=== PATIENT | male | born 1940 | race Caucasian/White ===

== ENCOUNTER 2017-09-09 12:07 | Inpatient (IN) ==
[2017-09-09] MEDS ORDERED: Benzonatate 100 MG CAPSULE PO PRN (21:27)
[2017-09-10] MEDS: Metoprolol XL (24 HR) Succ 50 MG TAB.ER.24H PO SCH ×3 (00:10→21:35)
[2017-09-10] MEDS: cloNIDine HCl 0.1 MG TABLET PO SCH ×4 (00:10→21:35)
[2017-09-10] MEDS: *HR* OxyCODONE/APAP 5/325 TABLET PO PRN (00:10)
[2017-09-10 05:45] LABS: Basophils # 0.1 K/mcL (0.0-0.2); Basophils % 1.3 %; Eosinophils # 0.2 K/mcL (0.0-0.6); Eosinophils % 3.9 %; Hematocrit 35.5 % (37.5-50.1); Hemoglobin 11.7 g/dL (12.9-16.9); Immature Granulocytes % 0.8 % (0-4); Lymphocytes # 1.6 K/mcL (0.6-4.6); Lymphocytes % 25.2 %; Mean Corpuscular Hemoglobin 32.1 pg (28.0-33.3); Mean Corpuscular Volume 97.3 fL (83.0-100.0); Mean Platelet Volume 9.6 fL (9.4-12.4); Monocytes # 0.6 K/mcL (0.0-1.3); Monocytes % 8.9 %; Neutrophils # 3.7 K/mcL (1.6-8.9); Platelet Count 207 K/mcL (140-400); Red Blood Count 3.65 M/mcL (4.19-5.50); Red Cell Distribution Width 13.2 % (11.5-14.5); Segmented Neutrophils % 59.9 %
[2017-09-10 05:50] LABS: INR 1.2; Prothrombin Time 12.6 Seconds (9.4-12.1)
[2017-09-10 05:51] LABS: Activated Partial Thrombo Time 29.3 Seconds (26.0-36.0)
[2017-09-10 06:00] LABS: BUN/Creatinine Ratio 22 (6-26); Blood Urea Nitrogen 28 mg/dL (8-23); Calcium 9.1 mg/dL (8.6-10.3); Carbon Dioxide 36 mEq/L (23-29); Chloride 98 mEq/L (98-107); Glucose 131 mg/dL (70-105); Osmolality,Calculated 301 (280-300); Potassium 4.2 mEq/L (3.5-5.1); Sodium 142 mEq/L (136-145); eGFR For African Americans > 60 (> 60); eGFR For Non-African Americans 54 (> 60)
[2017-09-10] MEDS: *HR* Heparin 5,000 UNIT/ML VIAL SQ SCH ×2 (06:49→17:51)
[2017-09-10] MEDS ORDERED: Ipratropium/Albuterol Neb 3 ML IH PRN (08:20)
[2017-09-10] MEDS: Acetaminophen 325 MG TABLET PO PRN ×3 (09:01→17:45)
[2017-09-10] MEDS: *HR* Nateglinide 120 MG TABLET PO SCH ×3 (09:03→17:45)
[2017-09-10] MEDS: Furosemide 40 MG TABLET PO SCH ×2 (09:03→17:45)
[2017-09-10] MEDS: amLODIPine 5 MG TABLET PO SCH (09:03)
[2017-09-10] MEDS: Aspirin Enteric Coated 81 MG Tablet PO SCH (09:03)
[2017-09-10] MEDS: Clotrimazole/Betameth Dip CRM 45 APPL/45 GM TUBE TP SCH ×2 (09:04→21:36)
--- NOTE | 2017-09-10 17:45 | Internal Med History&Physical ---
Date of Encounter: 09/10/17 Time of Encounter: 17:45 Assessment and Plan (1) Muscular deconditioning Current visit: Yes Status: Acute He will be treated with physical and occupational therapy and as his medical condition tolerates, will increase his activity. (2) Coronary artery disease Current visit: Yes Status: Acute The history is poorly characterized but apparently involves 3 coronary stents. He denies use of nitroglycerin, recent chest or cardiopulmonary symptoms, chest pain, etc. Will follow clinically. Qualifiers: Coronary Disease-Associated Artery/Lesion type: unspecified vessel or lesion type [place] vs. transplanted heart: [place] heart Associated angina: without angina Qualified Code(s): I25.10 - Atherosclerotic heart disease of [place] coronary artery without angina pectoris (3) Chronic venous stasis dermatitis Current visit: Yes Status: Acute I am concerned that he is developing cellulitis and will therefore cover him with Keflex, and ask wound care to be involved, follow clinically. (4) Edema Current visit: Yes Status: Acute The etiology is uncertain but has caused him stasis dermatitis and apparent ulceration. Will continue on furosemide twice a day and might need to adjust. Qualifiers: Edema type: unspecified Qualified Code(s): R60.9 - Edema, unspecified (5) Type 2 diabetes mellitus Current visit: Yes Status: Acute We will follow with sliding scale insulin along with his current regimen. Qualifiers: Diabetes mellitus chcf insulin use: without chcf use Diabetes mellitus complication status: with unspecified complications Qualified Code(s) : E11.8 - Type 2 diabetes mellitus with unspecified complications (6) Urinary tract infection Current visit: Yes Status: Acute Given his recent sepsis, will recheck a urinalysis. Qualifiers: Urinary tract infection type: site unspecified Hematuria presence: without hematuria Qualified Code(s): N39.0 - Urinary tract infection, site not specified (7) Change in mental status Current visit: Yes Status: Acute Apparently related to recent sepsis and change in environment. Will follow clinically and watch for sundowning, etc. Qualifiers: Altered mental status type: delirium Qualified Code(s): R41.0 - Disorientation, unspecified Internal Medicine - H&P: HPI Admitted From: Hospital to Hospital Transfer Plans for Post Hospital Care: Home History of present illness: Mr. Olmedo is a 77 year old male who was admitted 3 weeks ago to [facility]. He entered with a change in mental status, fevers, chills, sweats. He had regular elevations of his temperature to over 101 degrees. Infectious source was difficult to find. It was determined the ED had pneumonia and urinary tract infection. Different antibiotics for ineffective in controlling his fever and he required long-term oxygen supplementation but was never ventilated. He continues to have intermittent mild confusion. History is therefore obtained from the patient and his daughter. He denies focal symptoms and is markedly deconditioned because of his illness. He now presents for physical therapy to regain strength and independence with activities of daily living. He had been living on his own and caring for himself. 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 He has a history of coronary artery disease but has never had congestive heart failure or heart attack. He has had 3 stents placed, he believes at [facility]. He has long-standing hypertension and takes medication for same. He has hyperlipidemia. He has diabetes and this is been in poor control, recently. He has not used insulin at home. He denies history of COPD or asthma and does not use oxygen at home but has been on as much as 10 L of oxygen by nasal cannula, during his recent hospitalization. He is still on oxygen at 2 L per nasal cannula as they were unable to wean this. He had an open ulcer with MRSA that was treated with antibiotics and compression wound care. This recently healed but during his hospitalization, his edema has become worse. For this reason, his developing increasing erythema and his daughter is concerned that he is becoming infected, again. He denies problems with bowel or bladder before hospitalization or during hospitalization. He is edentulous, wears glasses, has been told he has a large hernia but feels he is in generally good health. Patient has no complaint of chest discomfort, dyspnea, orthopnea, palpitations, nausea or vomiting, constipation or diarrhea, other changes in bowel habits, difficulty with urination, rash or itching, or other new complaints, except as mentioned above. Review of systems is otherwise unremarkable. 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 Lives alone. - Family History Mother History Unknown: Yes Father History Unknown: Yes Internal Medicine - H&P: Meds Acetaminophen [Tylenol] 650 mg PO Q4HR PRN 09/09/17 [History] Allopurinol [Zyloprim 100 MG] 100 mg PO DAILY 09/09/17 [History] Aspirin [Lo-Dose Aspirin EC] 81 mg PO DAILY 09/09/17 [History] Benzonatate [Tessalon] 200 mg PO Q6H PRN 09/09/17 [History] Clopidogrel [Plavix] 75 mg PO DAILY 09/09/17 [History] Furosemide [Lasix] 40 mg PO BIDWM 09/09/17 [History] Losartan Potassium [Cozaar] 100 mg PO HS 09/09/17 [History] Metoprolol Succinate 50 mg PO BID 09/09/17 [History] Nateglinide [Starlix] 120 mg PO TIDAC 09/09/17 [History] OxyCODONE/APAP 5/325 [Percocet 5/325 MG] 1 each PO Q4HR PRN 09/09/17 [History] Pantoprazole 20 mg PO DAILY 09/09/17 [History] Terazosin HCl 5 mg PO DAILY 09/09/17 [History] amLODIPine [Norvasc] 10 mg PO DAILY 09/09/17 [History] cloNIDine HCl 0.1 mg PO TID 09/09/17 [History] 3 Allergy/AdvReac Type Severity Reaction Status Date / Time No Known Allergies Allergy Verified 09/09/17 21:00 All Systems PM: A 10-system review of systems was performed and is negative for pertinent findings except as documented above in the HPI. - Constitutional Vitals: Temp Pulse Resp BP Pulse Ox 98.1 F 72 18 142/67 96 09/10/17 11:09 09/10/17 11:09 09/10/17 11:09 09/10/17 11:09 09/10/17 11:09 Exam: Examination: (Except as mentioned above): General: In no apparent distress, alert and oriented 3. He is on oxygen at 2 L per nasal cannula. Head: Atraumatic and normocephalic. Eyes: Extraocular muscles are intact, pupils equal round and reactive to light and accommodation. Sclerae anicteric. He is wearing eyeglasses. Ears: External ears are normal to inspection and hearing is grossly normal. Nose: Patent without lesion noted. Mouth: No intraoral lesions seen. He is edentulous. Neck: Supple with trachea midline. There is no thyromegaly or adenopathy and carotids are 2+ without bruit heard. Respiratory: No use of accessory muscles. Lungs are clear throughout. Normal airflow. Cardiovascular: Regular rate and rhythm without murmur appreciated. Abdomen: Bowel sounds are normal. No hepatosplenomegaly masses or tenderness. Obese and therefore difficult to palpate deeply. He has a large ventral hernia which reduces spontaneously and is nontender. Extremities: No cyanosis or clubbing but has rather tight skin because of 3+ ankle edema and foot edema. There is some erythema with chronic venous stasis. He has a healed ulceration at the posterior aspect of his left calf and there is no erythema or drainage at this site. Neurological: A and O 3. Cranial nerves II through XII are intact. No focal deficits and no abnormal movements or postures. Skin: Warm and non-diaphoretic with no lesions noted. Breasts, pelvic and rectal: Not examined. Internal Med - H&P Results - Labs CBC & Chem 7: 09/10/17 05:30 09/10/17 05:30 Labs: Short CBC 09/10/17 Range/Units 05:30 WBC 6.2 (4.3-11.1) K/mcL Hgb 11.7 L (12.9-16.9) g/dL Hct 35.5 L (37.5-50.1) % Plt Count 207 (140-400) K/mcL Neutrophils # 3.7 (1.6-8.9) K/mcL BMP 09/10/17 05:30 Sodium 142 Potassium 4.2 Chloride 98 Carbon Dioxide 36 H BUN 28 H Creatinine 1.28 Glucose 131 H Calcium 9.1
[2017-09-10] MEDS: cephALEXin 500 MG CAPSULE PO SCH (21:35)
[2017-09-11 05:04] LABS: Bilirubin,Urine Negative (Negative); Blood,Urine Large (Negative); Clarity,Urine Clear (Clear); Color,Urine Yellow (Yellow); Glucose,Urine (UA) Normal (Normal); Ketones,Urine Negative (Negative); Leukocyte Esterase,Urine Negative (Negative); Nitrite,Urine Negative (Negative); PH,Urine 7.5 pH Units (5.0-8.0); Protein,Urine Negative (Neg-Trace); Specific Gravity,Urine 1.015 (1.010-1.025); Urobilinogen,Urine Normal (Normal)
[2017-09-11 05:11] LABS: Bacteria,Urine Few per hpf (None-Few); RBC,Urine TNTC per hpf (0-3); Squamous Epithelial Cell,Urine Few per lpf (None-Few)
--- NOTE | 2017-09-11 05:45 | Internal Med Progress Note ---
Date of Encounter: 09/11/17 Time of Encounter: 05:45 - Assessment and plan (1) Muscular deconditioning Current Visit: Yes Status: Acute Assessment and plan: We will continue with therapies as previously mentioned and planned. (2) Coronary artery disease Current Visit: Yes Status: Acute Assessment and plan: Clinically stable without symptoms. Qualifiers: Coronary Disease-Associated Artery/Lesion type: unspecified vessel or lesion type [place] vs. transplanted heart: [place] heart Associated angina: without angina Qualified Code(s): I25.10 - Atherosclerotic heart disease of [place] coronary artery without angina pectoris (3) Chronic venous stasis dermatitis Current Visit: Yes Status: Acute Assessment and plan: We will continue to assess as noted previously (4) Edema Current Visit: Yes Status: Acute Assessment and plan: We will continue to follow and may need to adjust diuresis. Qualifiers: Edema type: unspecified Qualified Code(s): R60.9 - Edema, unspecified (5) Type 2 diabetes mellitus Current Visit: Yes Status: Acute Assessment and plan: Clinically stable. We will continue home regimen and follow. Qualifiers: Diabetes mellitus mcc insulin use: without intermediate project manager use Diabetes mellitus complication status: with unspecified complications Qualified Code(s) : E11.8 - Type 2 diabetes mellitus with unspecified complications (6) Urinary tract infection Current Visit: Yes Status: Acute Assessment and plan: Repeat urinalysis simply shows hematuria. We will continue to encourage fluids and follow. Qualifiers: Urinary tract infection type: site unspecified Hematuria presence: without hematuria Qualified Code(s): N39.0 - Urinary tract infection, site not specified (7) Change in mental status Current Visit: Yes Status: Acute Assessment and plan: He seems fine, to me, this morning. We will continue to follow. Qualifiers: Altered mental status type: delirium Qualified Code(s): R41.0 - Disorientation, unspecified - Time Spent With Patient 25 - 35 minutes - Subjective Interval history: Patient is sleeping quietly upon my arrival. He denies interval change. He has no dyspnea, fevers, chills, or sweats. Patient has no complaint of chest discomfort, dyspnea, orthopnea, palpitations, nausea or vomiting, constipation or diarrhea, other changes in bowel habits, difficulty with urination, rash or itching, or other new complaints, except as mentioned above. Review of systems is otherwise unremarkable. - Constitutional Vitals: Temp Pulse Resp BP Pulse Ox 97.9 F 72 18 150/71 95 09/10/17 19:11 09/10/17 19:11 09/10/17 19:11 09/10/17 19:11 09/10/17 19:11 Exam: Examination: (Except as mentioned above): General: In no apparent distress. Alert and oriented 3. Nondiaphoretic. He is on oxygen. Head: Atraumatic and normocephalic. Respiratory: No use of accessory muscles. Lungs are clear throughout except sonorous rhonchi right base. Normal airflow. Cardiovascular: Regular rate and rhythm without murmur appreciated. Abdomen: Bowel sounds are normal. No hepatosplenomegaly mass or tenderness appreciated. Obese and therefore difficult to palpate deeply. Extremities: No cyanosis clubbing or edema. Skin: Warm and non-diaphoretic with no new lesions noted. Internal Medicine: Result - Labs CBC & Chem 7: 09/10/17 05:30 09/10/17 05:30 Labs: Short CBC 09/10/17 Range/Units 05:30 WBC 6.2 (4.3-11.1) K/mcL Hgb 11.7 L (12.9-16.9) g/dL Hct 35.5 L (37.5-50.1) % Plt Count 207 (140-400) K/mcL Neutrophils # 3.7 (1.6-8.9) K/mcL BMP 09/10/17 05:30 Sodium 142 Potassium 4.2 Chloride 98 Carbon Dioxide 36 H BUN 28 H Creatinine 1.28 Glucose 131 H Calcium 9.1 Urine 09/11/17 Range/Units 04:40 Urine Color Yellow (Yellow) Urine Clarity Clear (Clear) Urine pH 7.5 (5.0-8.0) pH Units Ur Specific [place] 1.015 (1.010-1.025) Urine Protein Negative (Neg-Trace) mg/dL Urine Glucose (UA) Normal (Normal) mg/dL - ABG Interpretation ABG results: PT/INR, D-dimer PT 12.6 Seconds (9.4-12.1) H 09/10/17 05:30 Consult Discharge Plan - Plan Referrals: Salud Arizmendi MD [Primary Care Provider] -
[2017-09-11] MEDS: *HR* Heparin 5,000 UNIT/ML VIAL SQ SCH ×2 (05:48→17:13)
[2017-09-11] MEDS: Metoprolol XL (24 HR) Succ 50 MG TAB.ER.24H PO SCH ×2 (08:45→20:40)
[2017-09-11] MEDS: amLODIPine 5 MG TABLET PO SCH (08:45)
[2017-09-11] MEDS: Furosemide 40 MG TABLET PO SCH ×2 (08:45→17:02)
[2017-09-11] MEDS: *HR* Nateglinide 120 MG TABLET PO SCH ×3 (08:45→17:02)
[2017-09-11] MEDS: Acetaminophen 325 MG TABLET PO PRN ×2 (08:45→17:02)
[2017-09-11] MEDS: cephALEXin 500 MG CAPSULE PO SCH ×4 (08:45→20:40)
[2017-09-11] MEDS: cloNIDine HCl 0.1 MG TABLET PO SCH ×3 (08:45→20:40)
[2017-09-11] MEDS: Clotrimazole/Betameth Dip CRM 45 APPL/45 GM TUBE TP SCH ×2 (08:46→20:40)
[2017-09-11] MEDS: Aspirin Enteric Coated 81 MG Tablet PO SCH (08:46)
[2017-09-12] MEDS: *HR* Heparin 5,000 UNIT/ML VIAL SQ SCH ×2 (06:31→17:36)
[2017-09-12 07:05] LABS: INR 1.1; Prothrombin Time 12.1 Seconds (9.4-12.1)
[2017-09-12 07:06] LABS: Basophils # 0.1 K/mcL (0.0-0.2); Basophils % 1.3 %; Eosinophils # 0.2 K/mcL (0.0-0.6); Hematocrit 36.2 % (37.5-50.1); Hemoglobin 11.9 g/dL (12.9-16.9); Immature Granulocytes % 0.6 % (0-4); Lymphocytes # 1.2 K/mcL (0.6-4.6); Lymphocytes % 25.8 %; Mean Corpuscular HGB Conc 32.9 g/dL (31.6-35.5); Mean Corpuscular Hemoglobin 31.4 pg (28.0-33.3); Mean Corpuscular Volume 95.5 fL (83.0-100.0); Mean Platelet Volume 9.9 fL (9.4-12.4); Monocytes # 0.6 K/mcL (0.0-1.3); Monocytes % 11.5 %; Neutrophils # 2.7 K/mcL (1.6-8.9); Platelet Count 184 K/mcL (140-400); Red Blood Count 3.79 M/mcL (4.19-5.50); Red Cell Distribution Width 13.2 % (11.5-14.5); Segmented Neutrophils % 56.8 %
[2017-09-12 07:22] LABS: BUN/Creatinine Ratio 20 (6-26); Blood Urea Nitrogen 25 mg/dL (8-23); Calcium 9.1 mg/dL (8.6-10.3); Carbon Dioxide 36 mEq/L (23-29); Chloride 100 mEq/L (98-107); Glucose 108 mg/dL (70-105); Osmolality,Calculated 297 (280-300); Potassium 4.2 mEq/L (3.5-5.1); Sodium 141 mEq/L (136-145); eGFR For African Americans > 60 (> 60); eGFR For Non-African Americans 54 (> 60)
[2017-09-12] MEDS: Furosemide 40 MG TABLET PO SCH ×2 (08:41→17:31)
[2017-09-12] MEDS: cloNIDine HCl 0.1 MG TABLET PO SCH ×3 (08:41→22:01)
[2017-09-12] MEDS: *HR* Nateglinide 120 MG TABLET PO SCH ×3 (08:41→17:31)
[2017-09-12] MEDS: Clotrimazole/Betameth Dip CRM 45 APPL/45 GM TUBE TP SCH ×2 (08:41→22:02)
[2017-09-12] MEDS: cephALEXin 500 MG CAPSULE PO SCH ×4 (08:41→22:02)
[2017-09-12] MEDS: Aspirin Enteric Coated 81 MG Tablet PO SCH ×2 (08:41→12:28)
[2017-09-12] MEDS: Metoprolol XL (24 HR) Succ 50 MG TAB.ER.24H PO SCH ×2 (08:41→22:02)
[2017-09-12] MEDS: amLODIPine 5 MG TABLET PO SCH (08:41)
[2017-09-12] MEDS: Acetaminophen 325 MG TABLET PO PRN (08:41)
--- NOTE | 2017-09-12 11:32 | Internal Med Progress Note ---
Date of Encounter: 09/12/17 Time of Encounter: 11:30 - Assessment and plan (1) Muscular deconditioning Current Visit: Yes Status: Acute Assessment and plan: Continue PT\OT. Will follow progress. (2) Coronary artery disease Current Visit: Yes Status: Acute Assessment and plan: Clinically stable. Will monitor. Qualifiers: Coronary Disease-Associated Artery/Lesion type: unspecified vessel or lesion type [place] vs. transplanted heart: [place] heart Associated angina: without angina Qualified Code(s): I25.10 - Atherosclerotic heart disease of [place] coronary artery without angina pectoris (3) Edema Current Visit: Yes Status: Chronic Assessment and plan: Stable. Will monitor for change. Continue diuretics Qualifiers: Edema type: unspecified Qualified Code(s): R60.9 - Edema, unspecified (4) Essential hypertension Current Visit: Yes Status: Acute Assessment and plan: Controlled with current medication. Monitor blood pressure. - Time Spent With Patient 25 - 35 minutes - Subjective Interval history: Participating well with therapy. Denies shortness of breath, chest pain, fever , chills, nausea vomiting or diarrhea. States bowels move this morning. Continues to be on oxygen per nasal cannula with saturations 97% at 2 L. Therapy to trial weaning with activity. - Constitutional Vitals: Temp Pulse Resp BP Pulse Ox 98.3 F 62 18 170/74 97 09/12/17 07:17 09/12/17 07:17 09/12/17 07:17 09/12/17 07:17 09/12/17 07:17 General appearance: Present: A&O X 3, pleasant, no acute distress, obese, answers questions appropriately - Head Head exam: Present: atraumatic, normocephalic - Eye Eye exam: Present: PERRL, conjuntiva pink, sclera anicteric Pupils: Present: PERRL - Neck Neck exam general surgery: Present: supple, trachea midline. Absent: lymphadenopathy - Respiratory Respiratory exam: Present: CTAB. Absent: accessory muscle use, rales, rhonchi, wheezes - Cardiovascular Cardiovascular exam: Present: RRR, +S1, +S2. Absent: diastolic murmur, gallop, rubs, systolic murmur - GI/Abdominal GI/Abdominal exam: Present: normal bowel sounds, soft, no peritoneal signs. Absent: distended, tenderness - Extremities Exam Extremities exam: Present: pedal edema, warm, radial pulses palpable and symmetrical. Absent: calf tenderness, cyanotic - Neurological Exam Neurological exam: Present: CN II-XII intact, oriented X3, no focal deficits. Absent: pronater drift, facial droop, speech deficit - Skin Skin exam: Present: dry, intact Internal Medicine: Result - Labs CBC & Chem 7: 09/12/17 06:32 09/12/17 06:32 Labs: Short CBC 09/12/17 Range/Units 06:32 WBC 4.8 (4.3-11.1) K/mcL Hgb 11.9 L (12.9-16.9) g/dL Hct 36.2 L (37.5-50.1) % Plt Count 184 (140-400) K/mcL Neutrophils # 2.7 (1.6-8.9) K/mcL BMP 09/12/17 06:32 Sodium 141 Potassium 4.2 Chloride 100 Carbon Dioxide 36 H BUN 25 H Creatinine 1.28 Glucose 108 H Calcium 9.1 - ABG Interpretation ABG results: PT/INR, D-dimer PT 12.1 Seconds (9.4-12.1) 09/12/17 06:32 Consult Discharge Plan - Plan Referrals: Salud Arizmendi MD [Primary Care Provider] -
[2017-09-12] MEDS: *HR* OxyCODONE/APAP 5/325 TABLET PO PRN (22:02)
[2017-09-13] MEDS: *HR* Heparin 5,000 UNIT/ML VIAL SQ SCH ×2 (05:39→18:08)
[2017-09-13] MEDS: Acetaminophen 325 MG TABLET PO PRN (08:34)
[2017-09-13] MEDS: cephALEXin 500 MG CAPSULE PO SCH ×4 (08:34→21:35)
[2017-09-13] MEDS: Aspirin Enteric Coated 81 MG Tablet PO SCH (08:35)
[2017-09-13] MEDS: cloNIDine HCl 0.1 MG TABLET PO SCH ×3 (08:35→21:34)
[2017-09-13] MEDS: *HR* Nateglinide 120 MG TABLET PO SCH ×3 (08:35→18:02)
[2017-09-13] MEDS: amLODIPine 5 MG TABLET PO SCH (08:35)
[2017-09-13] MEDS: Furosemide 40 MG TABLET PO SCH ×2 (08:35→18:02)
[2017-09-13] MEDS: Metoprolol XL (24 HR) Succ 50 MG TAB.ER.24H PO SCH ×2 (08:35→21:37)
[2017-09-13] MEDS: Clotrimazole/Betameth Dip CRM 45 APPL/45 GM TUBE TP SCH ×2 (08:36→21:42)
--- NOTE | 2017-09-13 11:15 | Internal Med Progress Note ---
Date of Encounter: 09/13/17 Time of Encounter: 11:12 - Assessment and plan (1) Muscular deconditioning Current Visit: Yes Status: Acute Assessment and plan: Continue PT\\OT. Will follow progress. (2) Coronary artery disease Current Visit: Yes Status: Acute Assessment and plan: Clinically stable. Will monitor. Qualifiers: Coronary Disease-Associated Artery/Lesion type: unspecified vessel or lesion type [place] vs. transplanted heart: [place] heart Associated angina: without angina Qualified Code(s): I25.10 - Atherosclerotic heart disease of [place] coronary artery without angina pectoris (3) Edema Current Visit: Yes Status: Chronic Assessment and plan: Stable. Will monitor for change. Continue diuretics Qualifiers: Edema type: unspecified Qualified Code(s): R60.9 - Edema, unspecified (4) Essential hypertension Current Visit: Yes Status: Acute Assessment and plan: Controlled with current medication. Monitor blood pressure. - Time Spent With Patient less than 15 minutes - Subjective Interval history: Participating well with therapy. Denies shortness of breath, chest pain, fever , chills, nausea vomiting or diarrhea. States bowels moved this morning. Continues to be on oxygen per nasal cannula with saturations 97% at 2 L. trialed room air with therapy yesterday and maintained sats >96% with exertion. BLE edema and redness, states that legs "no worse, has been like this for a couple years." - Constitutional Vitals: Temp Pulse Resp BP Pulse Ox 98.1 F 64 16 158/53 96 09/13/17 07:15 09/13/17 07:15 09/13/17 07:15 09/13/17 07:15 09/13/17 07:15 General appearance: Present: A&O X 3, pleasant, no acute distress, obese, answers questions appropriately - Head Head exam: Present: atraumatic, normocephalic - Eye Eye exam: Present: PERRL, conjuntiva pink, sclera anicteric Pupils: Present: PERRL - Neck Neck exam general surgery: Present: supple, trachea midline. Absent: lymphadenopathy - Respiratory Respiratory exam: Present: CTAB. Absent: accessory muscle use, rales, rhonchi, wheezes - Cardiovascular Cardiovascular exam: Present: RRR, +S1, +S2. Absent: diastolic murmur, gallop, rubs, systolic murmur - GI/Abdominal GI/Abdominal exam: Present: normal bowel sounds, soft, no peritoneal signs. Absent: distended, tenderness - Extremities Exam Extremities exam: Present: pedal edema, warm, radial pulses palpable and symmetrical. Absent: calf tenderness, cyanotic Additional comments: 1+ pitting edema BLE, with redness. no warmth. skin intact. - Neurological Exam Neurological exam: Present: CN II-XII intact, oriented X3, no focal deficits. Absent: pronater drift, facial droop, speech deficit - Skin Skin exam: Present: dry, intact Internal Medicine: Result - Labs CBC & Chem 7: 09/12/17 06:32 09/12/17 06:32 - ABG Interpretation ABG results: PT/INR, D-dimer PT 12.1 Seconds (9.4-12.1) 09/12/17 06:32 Consult Discharge Plan - Plan Referrals: Salud Arizmendi MD [Primary Care Provider] -
[2017-09-14] MEDS: *HR* Heparin 5,000 UNIT/ML VIAL SQ SCH ×2 (05:39→17:29)
[2017-09-14] MEDS: cloNIDine HCl 0.1 MG TABLET PO SCH ×3 (09:08→22:08)
[2017-09-14] MEDS: Acetaminophen 325 MG TABLET PO PRN (09:08)
[2017-09-14] MEDS: amLODIPine 5 MG TABLET PO SCH (09:08)
[2017-09-14] MEDS: Furosemide 40 MG TABLET PO SCH ×2 (09:08→17:28)
[2017-09-14] MEDS: *HR* Nateglinide 120 MG TABLET PO SCH ×3 (09:09→17:28)
[2017-09-14] MEDS: cephALEXin 500 MG CAPSULE PO SCH ×4 (09:09→22:08)
[2017-09-14] MEDS: Aspirin Enteric Coated 81 MG Tablet PO SCH (09:09)
[2017-09-14] MEDS: Metoprolol XL (24 HR) Succ 50 MG TAB.ER.24H PO SCH ×2 (09:09→22:08)
[2017-09-14] MEDS: Clotrimazole/Betameth Dip CRM 45 APPL/45 GM TUBE TP SCH ×2 (09:09→22:12)
--- NOTE | 2017-09-14 14:51 | Internal Med Progress Note ---
Date of Encounter: 09/14/17 Time of Encounter: 14:49 - Assessment and plan (1) Muscular deconditioning Current Visit: Yes Status: Acute Assessment and plan: Continue PT\OT. Will follow progress. (2) Coronary artery disease Current Visit: Yes Status: Acute Assessment and plan: Clinically stable. Will monitor. Qualifiers: Coronary Disease-Associated Artery/Lesion type: unspecified vessel or lesion type [place] vs. transplanted heart: [place] heart Associated angina: without angina Qualified Code(s): I25.10 - Atherosclerotic heart disease of [place] coronary artery without angina pectoris (3) Edema Current Visit: Yes Status: Chronic Assessment and plan: Stable. Will monitor for change. Continue diuretics Qualifiers: Edema type: unspecified Qualified Code(s): R60.9 - Edema, unspecified (4) Essential hypertension Current Visit: Yes Status: Acute Assessment and plan: Controlled with current medication. Monitor blood pressure. - Time Spent With Patient less than 15 minutes - Subjective Interval history: Participating well with therapy. Denies shortness of breath, chest pain, fever , chills, nausea vomiting or diarrhea. Continues to be on oxygen per nasal cannula with saturations 97% at 2 L. will wean O2. wound applied ike boots to BLE, states skin intact. on Keflex. - Constitutional Vitals: Temp Pulse Resp BP Pulse Ox 98.3 F 74 16 137/69 96 09/14/17 07:00 09/14/17 07:00 09/14/17 07:00 09/14/17 07:00 09/14/17 07:00 General appearance: Present: A&O X 3, pleasant, no acute distress, obese, answers questions appropriately - Head Head exam: Present: atraumatic, normocephalic - Eye Eye exam: Present: PERRL, conjuntiva pink, sclera anicteric Pupils: Present: PERRL - Neck Neck exam general surgery: Present: supple, trachea midline. Absent: lymphadenopathy - Respiratory Respiratory exam: Present: CTAB. Absent: accessory muscle use, rales, rhonchi, wheezes - Cardiovascular Cardiovascular exam: Present: RRR, +S1, +S2. Absent: diastolic murmur, gallop, rubs, systolic murmur - GI/Abdominal GI/Abdominal exam: Present: normal bowel sounds, soft, no peritoneal signs. Absent: distended, tenderness - Extremities Exam Extremities exam: Present: pedal edema, warm, radial pulses palpable and symmetrical. Absent: calf tenderness, cyanotic Additional comments: 2 + bilat LE. - Neurological Exam Neurological exam: Present: CN II-XII intact, oriented X3, no focal deficits. Absent: pronater drift, facial droop, speech deficit - Skin Skin exam: Present: dry, intact Internal Medicine: Result - Labs CBC & Chem 7: 09/12/17 06:32 09/12/17 06:32 - ABG Interpretation ABG results: PT/INR, D-dimer PT 12.1 Seconds (9.4-12.1) 09/12/17 06:32 Consult Discharge Plan - Plan Referrals: Salud Arizmendi MD [Primary Care Provider] -
[2017-09-15] MEDS: *HR* Heparin 5,000 UNIT/ML VIAL SQ SCH ×2 (04:17→17:51)
[2017-09-15] MEDS: cloNIDine HCl 0.1 MG TABLET PO SCH ×3 (08:31→21:58)
[2017-09-15] MEDS: *HR* Nateglinide 120 MG TABLET PO SCH ×3 (08:31→16:27)
[2017-09-15] MEDS: Furosemide 40 MG TABLET PO SCH ×2 (08:31→16:27)
[2017-09-15] MEDS: Aspirin Enteric Coated 81 MG Tablet PO SCH (08:31)
[2017-09-15] MEDS: Metoprolol XL (24 HR) Succ 50 MG TAB.ER.24H PO SCH ×2 (08:31→21:58)
[2017-09-15] MEDS: cephALEXin 500 MG CAPSULE PO SCH ×4 (08:31→21:58)
[2017-09-15] MEDS: amLODIPine 5 MG TABLET PO SCH (08:31)
[2017-09-15] MEDS: Clotrimazole/Betameth Dip CRM 45 APPL/45 GM TUBE TP SCH ×2 (08:33→22:00)
[2017-09-16] MEDS: *HR* Heparin 5,000 UNIT/ML VIAL SQ SCH ×2 (06:05→18:32)
[2017-09-16] MEDS: cloNIDine HCl 0.1 MG TABLET PO SCH ×3 (08:27→20:48)
[2017-09-16] MEDS: *HR* Nateglinide 120 MG TABLET PO SCH ×3 (08:27→18:32)
[2017-09-16] MEDS: cephALEXin 500 MG CAPSULE PO SCH ×4 (08:27→20:48)
[2017-09-16] MEDS: amLODIPine 5 MG TABLET PO SCH (08:27)
[2017-09-16] MEDS: Furosemide 40 MG TABLET PO SCH ×2 (08:28→18:32)
[2017-09-16] MEDS: Acetaminophen 325 MG TABLET PO PRN (08:28)
[2017-09-16] MEDS: Aspirin Enteric Coated 81 MG Tablet PO SCH (08:28)
[2017-09-16] MEDS: Metoprolol XL (24 HR) Succ 50 MG TAB.ER.24H PO SCH ×2 (08:28→20:47)
[2017-09-16] MEDS: Clotrimazole/Betameth Dip CRM 45 APPL/45 GM TUBE TP SCH ×2 (13:59→21:29)
--- NOTE | 2017-09-16 14:21 | Internal Med Progress Note ---
Date of Encounter: 09/16/17 Time of Encounter: 14:18 - Assessment and plan (1) Muscular deconditioning Current Visit: Yes Status: Acute Assessment and plan: Patient continues with physical therapy with reports that he is progressing well. Patient currently has no complaints of dyspnea or discomfort (2) Coronary artery disease Current Visit: Yes Status: Acute Assessment and plan: No acute issues. Patient denies any chest discomforts or palpitations. Continue with current medications Qualifiers: Coronary Disease-Associated Artery/Lesion type: unspecified vessel or lesion type [place] vs. transplanted heart: [place] heart Associated angina: without angina Qualified Code(s): I25.10 - Atherosclerotic heart disease of [place] coronary artery without angina pectoris (3) Chronic venous stasis dermatitis Current Visit: Yes Status: Acute Assessment and plan: No acute issues. Patient continues with Unna boots in place to bilateral legs. (4) Essential hypertension Current Visit: Yes Status: Acute Assessment and plan: Vital signs are stable. We will continue with current medications. - Time Spent With Patient less than 15 minutes - Subjective Interval history: Patient appears relaxed and currently denies any discomforts or shortness of breath. Patient states that therapy has been progressing well. - Constitutional Vitals: Temp Pulse Resp BP Pulse Ox 98.0 F 64 16 139/73 92 09/16/17 07:00 09/16/17 07:00 09/16/17 07:00 09/16/17 07:00 09/16/17 07:00 General appearance: Present: A&O X 3, pleasant, no acute distress, obese, answers questions appropriately - Head Head exam: Present: atraumatic, normocephalic - Eye Eye exam: Present: PERRL, conjuntiva pink, sclera anicteric Pupils: Present: PERRL - Neck Neck exam general surgery: Present: supple, trachea midline. Absent: lymphadenopathy - Respiratory Respiratory exam: Present: CTAB. Absent: accessory muscle use, rales, rhonchi, wheezes - Cardiovascular Cardiovascular exam: Present: RRR, +S1, +S2. Absent: diastolic murmur, gallop, rubs, systolic murmur - GI/Abdominal GI/Abdominal exam: Present: normal bowel sounds, soft, no peritoneal signs. Absent: distended, tenderness - Extremities Exam Extremities exam: Present: warm, radial pulses palpable and symmetrical. Absent : calf tenderness, cyanotic, pedal edema - Neurological Exam Neurological exam: Present: CN II-XII intact, oriented X3, no focal deficits. Absent: pronater drift, facial droop, speech deficit - Skin Skin exam: Present: dry, intact Internal Medicine: Result - Labs CBC & Chem 7: 09/12/17 06:32 09/12/17 06:32 - ABG Interpretation ABG results: PT/INR, D-dimer PT 12.1 Seconds (9.4-12.1) 09/12/17 06:32 Consult Discharge Plan - Plan Referrals: Salud Arizmendi MD [Primary Care Provider] -
[2017-09-17] MEDS: *HR* Heparin 5,000 UNIT/ML VIAL SQ SCH ×2 (05:09→16:54)
[2017-09-17] MEDS: amLODIPine 5 MG TABLET PO SCH (08:07)
[2017-09-17] MEDS: Metoprolol XL (24 HR) Succ 50 MG TAB.ER.24H PO SCH ×2 (08:07→21:27)
[2017-09-17] MEDS: Aspirin Enteric Coated 81 MG Tablet PO SCH (08:07)
[2017-09-17] MEDS: cloNIDine HCl 0.1 MG TABLET PO SCH ×3 (08:07→21:27)
[2017-09-17] MEDS: cephALEXin 500 MG CAPSULE PO SCH ×4 (08:07→21:27)
[2017-09-17] MEDS: *HR* Nateglinide 120 MG TABLET PO SCH ×3 (08:07→16:54)
[2017-09-17] MEDS: Furosemide 40 MG TABLET PO SCH ×2 (08:07→16:54)
[2017-09-17] MEDS: Clotrimazole/Betameth Dip CRM 45 APPL/45 GM TUBE TP SCH ×2 (08:09→21:29)
--- NOTE | 2017-09-17 10:29 | Internal Med Progress Note ---
Date of Encounter: 09/17/17 Time of Encounter: 10:27 - Assessment and plan (1) Muscular deconditioning Current Visit: Yes Status: Acute Assessment and plan: Getting rehab and seems to be getting better n other complains (2) Coronary artery disease Current Visit: Yes Status: Chronic Assessment and plan: stable at the present time continue present meds Qualifiers: Coronary Disease-Associated Artery/Lesion type: unspecified vessel or lesion type [place] vs. transplanted heart: [place] heart Associated angina: without angina Qualified Code(s): I25.10 - Atherosclerotic heart disease of [place] coronary artery without angina pectoris (3) Type 2 diabetes mellitus Current Visit: Yes Status: Chronic Assessment and plan: On meds reasonable well controlled. no hypoglycemic episodes. Qualifiers: Diabetes mellitus electric deicer assembler insulin use: without electric deicer assembler use Diabetes mellitus complication status: with unspecified complications Qualified Code(s) : E11.8 - Type 2 diabetes mellitus with unspecified complications (4) Essential hypertension Current Visit: Yes Status: Chronic Assessment and plan: stable and well controlled . edema in eg conservative treatment KATHY hoses and elevate legs - Subjective Interval history: sitting in chair no acute issues slept well no increase in SOb or chest pain overall he feels that he has improved - Constitutional Vitals: Temp Pulse Resp BP Pulse Ox 97.8 F 59 20 138/76 91 09/17/17 07:26 09/17/17 07:26 09/17/17 07:26 09/17/17 07:26 09/17/17 07:26 General appearance: Present: A&O X 3, pleasant, no acute distress, obese, answers questions appropriately - Head Head exam: Present: atraumatic - Eye Eye exam: Present: EOMI, PERRL - Neck Neck exam general surgery: Present: supple. Absent: tenderness, nuchal rigidity - Respiratory Respiratory exam: Present: CTAB. Absent: prolonged expiratory phase, rales, respiratory distress, stridor, wheezes - Cardiovascular Cardiovascular exam: Present: RRR, +S1, +S2. Absent: irregular rhythm, JVD Additional comments: distant heart sounds - GI/Abdominal GI/Abdominal exam: Present: normal bowel sounds, soft. Absent: distended, firm , rigid - Extremities Exam Extremities exam: Present: pedal edema Additional comments: ++ both sides - Neurological Exam Neurological exam: Present: alert, CN II-XII intact, oriented X3, no focal deficits. Absent: facial droop, speech deficit Internal Medicine: Result - Labs CBC & Chem 7: 09/12/17 06:32 09/12/17 06:32 - ABG Interpretation ABG results: PT/INR, D-dimer PT 12.1 Seconds (9.4-12.1) 09/12/17 06:32 - VTE Documentation of Mechanical Device: Graduated compression elastic hosiery Consult Discharge Plan - Plan Referrals: Salud Arizmendi MD [Primary Care Provider] -
[2017-09-17] MEDS: *HR* OxyCODONE/APAP 5/325 TABLET PO PRN (14:09)
[2017-09-18] MEDS: *HR* Heparin 5,000 UNIT/ML VIAL SQ SCH ×2 (05:24→16:34)
[2017-09-18] MEDS: *HR* OxyCODONE/APAP 5/325 TABLET PO PRN ×2 (07:35→13:54)
[2017-09-18] MEDS: amLODIPine 5 MG TABLET PO SCH (07:35)
[2017-09-18] MEDS: cephALEXin 500 MG CAPSULE PO SCH ×4 (07:36→19:48)
[2017-09-18] MEDS: Clotrimazole/Betameth Dip CRM 45 APPL/45 GM TUBE TP SCH ×2 (07:36→19:48)
[2017-09-18] MEDS: cloNIDine HCl 0.1 MG TABLET PO SCH ×3 (07:36→19:48)
[2017-09-18] MEDS: Aspirin Enteric Coated 81 MG Tablet PO SCH (07:36)
[2017-09-18] MEDS: *HR* Nateglinide 120 MG TABLET PO SCH ×3 (07:36→16:35)
[2017-09-18] MEDS: Furosemide 40 MG TABLET PO SCH ×2 (07:36→16:35)
[2017-09-18] MEDS: Metoprolol XL (24 HR) Succ 50 MG TAB.ER.24H PO SCH ×2 (07:36→19:48)
--- NOTE | 2017-09-18 08:57 | Internal Med Progress Note ---
Date of Encounter: 09/18/17 Time of Encounter: 08:55 - Assessment and plan (1) Muscular deconditioning Current Visit: Yes Status: Acute Assessment and plan: He continues to improve in his mobility . no new change (2) Coronary artery disease Current Visit: Yes Status: Chronic Assessment and plan: clinically stable no chest pain continue to monitor Qualifiers: Coronary Disease-Associated Artery/Lesion type: unspecified vessel or lesion type [place] vs. transplanted heart: [place] heart Associated angina: without angina Qualified Code(s): I25.10 - Atherosclerotic heart disease of [place] coronary artery without angina pectoris (3) Type 2 diabetes mellitus Current Visit: Yes Status: Chronic Assessment and plan: reasonable well controlled no new change continue to adjust meds as needed Qualifiers: Diabetes mellitus penitentiary insulin use: without manager terminal use Diabetes mellitus complication status: with unspecified complications Qualified Code(s) : E11.8 - Type 2 diabetes mellitus with unspecified complications (4) Essential hypertension Current Visit: Yes Status: Chronic Assessment and plan: no new change stable .Continue present medication - Subjective Interval history: No new change His breathing is almost to his base line He is getting his PT and getting more strength. Appetite is good - Constitutional Vitals: Temp Pulse Resp BP Pulse Ox 98.0 F 60 14 136/49 94 09/18/17 07:00 09/18/17 07:00 09/18/17 07:00 09/18/17 07:00 09/18/17 07:00 General appearance: Present: A&O X 3, pleasant, no acute distress, obese, answers questions appropriately - Head Head exam: Present: atraumatic - Eye Eye exam: Present: EOMI, PERRL - Neck Neck exam general surgery: Present: supple. Absent: tenderness, nuchal rigidity - Respiratory Respiratory exam: Present: CTAB. Absent: decreased breath sounds, respiratory distress, rhonchi, stridor, wheezes, tachypnea - Cardiovascular Cardiovascular exam: Present: RRR, +S1, +S2. Absent: irregular rhythm, JVD - GI/Abdominal GI/Abdominal exam: Present: normal bowel sounds, soft. Absent: distended, firm , guarding, rebound, rigid - Extremities Exam Extremities exam: Present: pedal edema Additional comments: + both feet and ankles .Feet more then on ankles - Neurological Exam Neurological exam: Present: alert, CN II-XII intact, oriented X3, no focal deficits. Absent: facial droop, speech deficit Internal Medicine: Result - Labs CBC & Chem 7: 09/12/17 06:32 09/12/17 06:32 - ABG Interpretation ABG results: PT/INR, D-dimer PT 12.1 Seconds (9.4-12.1) 09/12/17 06:32 - VTE Documentation of Mechanical Device: Graduated compression elastic hosiery Consult Discharge Plan - Plan Referrals: Salud Arizmendi MD [Primary Care Provider] -
[2017-09-19] MEDS: *HR* OxyCODONE/APAP 5/325 TABLET PO PRN (00:43)
[2017-09-19] MEDS: *HR* Heparin 5,000 UNIT/ML VIAL SQ SCH ×2 (04:18→18:50)
[2017-09-19 05:12] LABS: Basophils % 0.6 %; Eosinophils # 0.3 K/mcL (0.0-0.6); Hematocrit 36.6 % (37.5-50.1); Hemoglobin 12.1 g/dL (12.9-16.9); Immature Granulocytes % 0.2 % (0-4); Lymphocytes # 1.8 K/mcL (0.6-4.6); Mean Corpuscular HGB Conc 33.1 g/dL (31.6-35.5); Mean Corpuscular Hemoglobin 31.9 pg (28.0-33.3); Mean Corpuscular Volume 96.6 fL (83.0-100.0); Monocytes # 0.6 K/mcL (0.0-1.3); Monocytes % 13.3 %; Neutrophils # 2.1 K/mcL (1.6-8.9); Platelet Count 161 K/mcL (140-400); Red Blood Count 3.79 M/mcL (4.19-5.50); Red Cell Distribution Width 13.4 % (11.5-14.5); Segmented Neutrophils % 42.9 %
[2017-09-19 05:15] LABS: INR 1.1; Prothrombin Time 11.6 Seconds (9.4-12.1)
[2017-09-19 05:29] LABS: Calcium 9.1 mg/dL (8.6-10.3); Potassium 4.1 mEq/L (3.5-5.1)
[2017-09-19] MEDS: *HR* Nateglinide 120 MG TABLET PO SCH ×3 (09:49→18:51)
[2017-09-19] MEDS: Aspirin Enteric Coated 81 MG Tablet PO SCH (09:49)
[2017-09-19] MEDS: cephALEXin 500 MG CAPSULE PO SCH ×4 (09:49→20:31)
[2017-09-19] MEDS: cloNIDine HCl 0.1 MG TABLET PO SCH (09:49)
[2017-09-19] MEDS: amLODIPine 5 MG TABLET PO SCH (09:49)
[2017-09-19] MEDS: Metoprolol XL (24 HR) Succ 50 MG TAB.ER.24H PO SCH (09:49)
[2017-09-19] MEDS: Acetaminophen 325 MG TABLET PO PRN (09:49)
[2017-09-19] MEDS: Clotrimazole/Betameth Dip CRM 45 APPL/45 GM TUBE TP SCH ×2 (10:09→20:36)
--- NOTE | 2017-09-19 10:09 | Internal Med Progress Note ---
Date of Encounter: 09/19/17 Time of Encounter: 10:07 - Assessment and plan (1) Muscular deconditioning Current Visit: Yes Status: Acute Assessment and plan: Patient continues with physical therapy with reports that he is progressing well. Patient currently has no complaints of dyspnea or discomfort (2) Coronary artery disease Current Visit: Yes Status: Chronic Assessment and plan: No acute issues. Patient denies any chest discomforts or palpitations. Continue with current medications Qualifiers: Coronary Disease-Associated Artery/Lesion type: unspecified vessel or lesion type [place] vs. transplanted heart: [place] heart Associated angina: without angina Qualified Code(s): I25.10 - Atherosclerotic heart disease of [place] coronary artery without angina pectoris (3) Chronic venous stasis dermatitis Current Visit: Yes Status: Acute Assessment and plan: No acute issues. Patient continues with Unna boots in place to bilateral legs. (4) Essential hypertension Current Visit: Yes Status: Chronic Assessment and plan: Vital signs are stable. We will continue with current medications. - Time Spent With Patient less than 15 minutes - Subjective Interval history: Patient appears relaxed and currently denies any discomforts or shortness of breath. Patient states that therapy has been progressing well. - Constitutional Vitals: Temp Pulse Resp BP Pulse Ox 98.6 F 66 18 136/64 90 09/19/17 06:52 09/19/17 06:52 09/19/17 06:52 09/19/17 06:52 09/19/17 06:52 General appearance: Present: A&O X 3, pleasant, no acute distress, obese, answers questions appropriately - Head Head exam: Present: atraumatic, normocephalic - Eye Eye exam: Present: PERRL, conjuntiva pink, sclera anicteric Pupils: Present: PERRL - Neck Neck exam general surgery: Present: supple, trachea midline. Absent: lymphadenopathy - Respiratory Respiratory exam: Present: CTAB. Absent: accessory muscle use, rales, rhonchi, wheezes - Cardiovascular Cardiovascular exam: Present: RRR, +S1, +S2. Absent: diastolic murmur, gallop, rubs, systolic murmur - GI/Abdominal GI/Abdominal exam: Present: normal bowel sounds, soft, no peritoneal signs. Absent: distended, tenderness - Extremities Exam Extremities exam: Present: warm, radial pulses palpable and symmetrical. Absent : calf tenderness, cyanotic, pedal edema Additional comments: Patient continues with wraps to bilateral lower legs. Dressings are dry and intact - Neurological Exam Neurological exam: Present: CN II-XII intact, oriented X3, no focal deficits. Absent: pronater drift, facial droop, speech deficit - Skin Skin exam: Present: dry, intact Internal Medicine: Result - Labs CBC & Chem 7: 09/19/17 04:55 09/19/17 04:55 Labs: Short CBC 09/19/17 Range/Units 04:55 WBC 4.8 (4.3-11.1) K/mcL Hgb 12.1 L (12.9-16.9) g/dL Hct 36.6 L (37.5-50.1) % Plt Count 161 (140-400) K/mcL Neutrophils # 2.1 (1.6-8.9) K/mcL BMP 09/19/17 04:55 Sodium 141 Potassium 4.1 Chloride 101 Carbon Dioxide 33 H BUN 36 H Creatinine 1.76 H Glucose 102 Calcium 9.1 - ABG Interpretation ABG results: PT/INR, D-dimer PT 11.6 Seconds (9.4-12.1) 09/19/17 04:55 - VTE Documentation of Mechanical Device: Graduated compression elastic hosiery Consult Discharge Plan - Plan Referrals: Salud Arizmendi MD [Primary Care Provider] -
[2017-09-19] MEDS: Furosemide 40 MG TABLET PO SCH ×2 (10:10→18:52)
[2017-09-20] MEDS: *HR* Heparin 5,000 UNIT/ML VIAL SQ SCH ×2 (05:36→17:16)
[2017-09-20] MEDS: cephALEXin 500 MG CAPSULE PO SCH ×4 (09:26→20:31)
[2017-09-20] MEDS: *HR* Nateglinide 120 MG TABLET PO SCH ×3 (09:26→17:08)
[2017-09-20] MEDS: Aspirin Enteric Coated 81 MG Tablet PO SCH (09:26)
[2017-09-20] MEDS: Furosemide 40 MG TABLET PO SCH ×2 (09:26→17:08)
[2017-09-20] MEDS: Clotrimazole/Betameth Dip CRM 45 APPL/45 GM TUBE TP SCH ×2 (09:27→20:31)
--- NOTE | 2017-09-20 11:50 | Internal Med Progress Note ---
Date of Encounter: 09/20/17 Time of Encounter: 11:48 - Assessment and plan (1) Muscular deconditioning Current Visit: Yes Status: Acute Assessment and plan: Patient continues with physical therapy with reports that he is progressing well. Patient currently has no complaints of dyspnea or discomfort. Patient with no further issues with dizziness noted. (2) Coronary artery disease Current Visit: Yes Status: Chronic Assessment and plan: No acute issues. Patient denies any chest discomforts or palpitations. Continue with current medications Qualifiers: Coronary Disease-Associated Artery/Lesion type: unspecified vessel or lesion type [place] vs. transplanted heart: [place] heart Associated angina: without angina Qualified Code(s): I25.10 - Atherosclerotic heart disease of [place] coronary artery without angina pectoris (3) Chronic venous stasis dermatitis Current Visit: Yes Status: Acute Assessment and plan: No acute issues. Patient continues with Unna boots in place to bilateral legs. (4) Essential hypertension Current Visit: Yes Status: Chronic Assessment and plan: Patient systolic blood pressure yesterday had dropped between 80 and 90 during therapy. Patient's current hypertension medications are being held with this morning's systolic blood pressure in the 120s. We will continue to monitor closely and reintroduce medications - Subjective Interval history: Patient appears relaxed and currently denies any discomforts or shortness of breath. Patient states that therapy has been progressing well. Patient denies any dizziness. Patient had episode yesterday where he became somewhat dizzy and had a systolic blood pressure between 80 and 90. Patient's blood pressure medications have been held and currently systolic is at 120. - Constitutional Vitals: Temp Pulse Resp BP Pulse Ox 97.5 F L 85 20 121/76 95 09/20/17 07:17 09/20/17 07:17 09/20/17 07:17 09/20/17 07:17 09/20/17 07:17 General appearance: Present: A&O X 3, pleasant, no acute distress, obese, answers questions appropriately Exam: Patient become somewhat confused at times with short-term recall - Head Head exam: Present: atraumatic, normocephalic - Eye Eye exam: Present: PERRL, conjuntiva pink, sclera anicteric Pupils: Present: PERRL - Neck Neck exam general surgery: Present: supple, trachea midline. Absent: lymphadenopathy - Respiratory Respiratory exam: Present: CTAB. Absent: accessory muscle use, rales, rhonchi, wheezes - Cardiovascular Cardiovascular exam: Present: RRR, +S1, +S2. Absent: diastolic murmur, gallop, rubs, systolic murmur Additional comments: Diminished at bases - GI/Abdominal GI/Abdominal exam: Present: normal bowel sounds, soft, no peritoneal signs. Absent: distended, tenderness - Extremities Exam Extremities exam: Present: warm, radial pulses palpable and symmetrical. Absent : calf tenderness, cyanotic, pedal edema Additional comments: Bilateral lower legs with an Unna boot type wraps in place. Dry and intact - Neurological Exam Neurological exam: Present: CN II-XII intact, oriented X3, no focal deficits. Absent: pronater drift, facial droop, speech deficit - Skin Skin exam: Present: dry, intact Internal Medicine: Result - Labs CBC & Chem 7: 09/19/17 04:55 09/19/17 04:55 - ABG Interpretation ABG results: PT/INR, D-dimer PT 11.6 Seconds (9.4-12.1) 09/19/17 04:55 - VTE Documentation of Mechanical Device: Graduated compression elastic hosiery Consult Discharge Plan - Plan Referrals: Salud Arizmendi MD [Primary Care Provider] -
[2017-09-21] MEDS: *HR* Heparin 5,000 UNIT/ML VIAL SQ SCH ×2 (05:28→17:48)
[2017-09-21] MEDS: cephALEXin 500 MG CAPSULE PO SCH ×4 (07:59→21:53)
[2017-09-21] MEDS: *HR* Nateglinide 120 MG TABLET PO SCH ×3 (07:59→17:48)
[2017-09-21] MEDS: Furosemide 40 MG TABLET PO SCH ×2 (07:59→17:48)
[2017-09-21] MEDS: Aspirin Enteric Coated 81 MG Tablet PO SCH (07:59)
[2017-09-21] MEDS: Clotrimazole/Betameth Dip CRM 45 APPL/45 GM TUBE TP SCH ×2 (08:00→21:55)
--- NOTE | 2017-09-21 10:54 | Internal Med Progress Note ---
Date of Encounter: 09/22/17 Time of Encounter: 10:51 - Assessment and plan (1) Muscular deconditioning Current Visit: Yes Status: Acute Assessment and plan: Patient continues with physical therapy with reports that he is progressing well. Patient currently has no complaints of dyspnea or discomfort. (2) Coronary artery disease Current Visit: Yes Status: Chronic Assessment and plan: No acute issues. Patient denies any chest discomforts or palpitations. Continue with current medications Qualifiers: Coronary Disease-Associated Artery/Lesion type: unspecified vessel or lesion type [place] vs. transplanted heart: [place] heart Associated angina: without angina Qualified Code(s): I25.10 - Atherosclerotic heart disease of [place] coronary artery without angina pectoris (3) Chronic venous stasis dermatitis Current Visit: Yes Status: Acute Assessment and plan: No acute issues. Patient continues with Unna boots in place to bilateral legs, which are dry and intact. (4) Essential hypertension Current Visit: Yes Status: Chronic Assessment and plan: VS are stable with SBP 110-120. Will continue to monitor and reintroduce meds as needed. - Subjective Interval history: Patient appears relaxed and currently denies any discomforts or shortness of breath. Patient states that therapy has been progressing well. Nursing reports no further episodes of hypotension. - Constitutional Vitals: Temp Pulse Resp BP Pulse Ox 98.3 F 87 14 158/77 92 09/21/17 07:00 09/21/17 07:00 09/21/17 07:00 09/21/17 07:00 09/21/17 07:00 General appearance: Present: A&O X 3, pleasant, no acute distress, obese, answers questions appropriately Internal Medicine: Result - Labs CBC & Chem 7: 09/19/17 04:55 09/19/17 04:55 - ABG Interpretation ABG results: PT/INR, D-dimer PT 11.6 Seconds (9.4-12.1) 09/19/17 04:55 - VTE Documentation of Mechanical Device: Graduated compression elastic hosiery Consult Discharge Plan - Plan Referrals: Salud Arizmendi MD [Primary Care Provider] -
[2017-09-22] MEDS: *HR* Heparin 5,000 UNIT/ML VIAL SQ SCH ×2 (05:44→18:07)
[2017-09-22] MEDS: Clotrimazole/Betameth Dip CRM 45 APPL/45 GM TUBE TP SCH ×2 (09:28→21:51)
[2017-09-22] MEDS: Furosemide 40 MG TABLET PO SCH ×2 (09:28→18:04)
[2017-09-22] MEDS: cephALEXin 500 MG CAPSULE PO SCH ×4 (09:28→21:51)
[2017-09-22] MEDS: *HR* Nateglinide 120 MG TABLET PO SCH ×3 (09:28→18:04)
[2017-09-22] MEDS: Aspirin Enteric Coated 81 MG Tablet PO SCH (09:28)
--- NOTE | 2017-09-22 14:11 | Internal Med Progress Note ---
Date of Encounter: 09/22/17 Time of Encounter: 14:09 - Assessment and plan (1) Muscular deconditioning Current Visit: Yes Status: Acute Assessment and plan: Patient continues with physical therapy with reports that he is progressing well. Patient currently has no complaints of dyspnea or discomfort. Patient being prepared for DC to home Tuesday. (2) Coronary artery disease Current Visit: Yes Status: Chronic Assessment and plan: No acute issues. Patient denies any chest discomforts or palpitations. Continue with current medications Qualifiers: Coronary Disease-Associated Artery/Lesion type: unspecified vessel or lesion type [place] vs. transplanted heart: [place] heart Associated angina: without angina Qualified Code(s): I25.10 - Atherosclerotic heart disease of [place] coronary artery without angina pectoris (3) Chronic venous stasis dermatitis Current Visit: Yes Status: Acute Assessment and plan: No acute issues. Patient continues with Unna boots in place to bilateral legs, which are dry and intact. (4) Essential hypertension Current Visit: Yes Status: Chronic Assessment and plan: VS are stable with SBP 110-120. Will continue to monitor and reintroduce meds as needed. - Subjective Interval history: Patient appears relaxed and currently denies any discomforts or shortness of breath. Patient states that therapy has been progressing well. Nursing reports no further episodes of hypotension. - Constitutional Vitals: Temp Pulse Resp BP Pulse Ox 98.8 F 79 16 158/71 91 09/22/17 07:44 09/22/17 07:44 09/22/17 07:44 09/22/17 07:44 09/22/17 07:44 General appearance: Present: A&O X 3, pleasant, no acute distress, obese, answers questions appropriately - Head Head exam: Present: atraumatic, normocephalic - Eye Eye exam: Present: PERRL, conjuntiva pink, sclera anicteric Pupils: Present: PERRL - Neck Neck exam general surgery: Present: supple, trachea midline. Absent: lymphadenopathy - Respiratory Respiratory exam: Present: CTAB. Absent: accessory muscle use, rales, rhonchi, wheezes - Cardiovascular Cardiovascular exam: Present: RRR, +S1, +S2. Absent: diastolic murmur, gallop, rubs, systolic murmur - GI/Abdominal GI/Abdominal exam: Present: normal bowel sounds, soft, no peritoneal signs. Absent: distended, tenderness - Extremities Exam Extremities exam: Present: warm, radial pulses palpable and symmetrical. Absent : calf tenderness, cyanotic, pedal edema Additional comments: bilateral legs with wraps in place, dry and intact. - Neurological Exam Neurological exam: Present: CN II-XII intact, oriented X3, no focal deficits. Absent: pronater drift, facial droop, speech deficit - Skin Skin exam: Present: dry, intact Internal Medicine: Result - Labs CBC & Chem 7: 09/19/17 04:55 09/19/17 04:55 - ABG Interpretation ABG results: PT/INR, D-dimer PT 11.6 Seconds (9.4-12.1) 09/19/17 04:55 - VTE Documentation of Mechanical Device: Graduated compression elastic hosiery Consult Discharge Plan - Plan Instructions: Viral Pneumonia (DC) Referrals: Salud Arizmendi MD [Primary Care Provider] - 09/27/17 2:45 pm (follow up appointment)
[2017-09-23] MEDS: *HR* Heparin 5,000 UNIT/ML VIAL SQ SCH ×2 (05:56→17:54)
[2017-09-23] MEDS: Furosemide 40 MG TABLET PO SCH ×2 (09:45→17:54)
[2017-09-23] MEDS: Aspirin Enteric Coated 81 MG Tablet PO SCH (09:45)
[2017-09-23] MEDS: *HR* Nateglinide 120 MG TABLET PO SCH ×3 (09:45→17:54)
[2017-09-23] MEDS: cephALEXin 500 MG CAPSULE PO SCH ×4 (09:45→20:51)
[2017-09-23] MEDS: Clotrimazole/Betameth Dip CRM 45 APPL/45 GM TUBE TP SCH ×2 (09:50→20:52)
--- NOTE | 2017-09-23 11:59 | Internal Med Progress Note ---
Date of Encounter: 09/23/17 Time of Encounter: 11:57 - Assessment and plan (1) Muscular deconditioning Current Visit: Yes Status: Acute Assessment and plan: Patient continues with physical therapy with reports that he is progressing well. Patient currently has no complaints of dyspnea or discomfort. Patient being prepared for DC to home Tuesday. (2) Coronary artery disease Current Visit: Yes Status: Chronic Assessment and plan: No acute issues. Patient denies any chest discomforts or palpitations. Continue with current medications Qualifiers: Coronary Disease-Associated Artery/Lesion type: unspecified vessel or lesion type [place] vs. transplanted heart: [place] heart Associated angina: without angina Qualified Code(s): I25.10 - Atherosclerotic heart disease of [place] coronary artery without angina pectoris (3) Chronic venous stasis dermatitis Current Visit: Yes Status: Acute Assessment and plan: No acute issues. Patient continues with Unna boots in place to bilateral legs, which are dry and intact. (4) Essential hypertension Current Visit: Yes Status: Chronic Assessment and plan: VS are stable with SBP 110-120. Will continue to monitor and reintroduce meds as needed. - Time Spent With Patient less than 15 minutes - Subjective Interval history: Patient appears relaxed and currently denies any discomforts or shortness of breath. Patient states that therapy has been progressing well. Nursing reports no further episodes of hypotension. - Constitutional Vitals: Temp Pulse Resp BP Pulse Ox 99.3 F 87 14 160/81 90 09/23/17 08:06 09/23/17 08:06 09/23/17 08:06 09/23/17 08:06 09/23/17 08:06 General appearance: Present: A&O X 3, pleasant, no acute distress, obese, answers questions appropriately - Head Head exam: Present: atraumatic, normocephalic - Eye Eye exam: Present: PERRL, conjuntiva pink, sclera anicteric Pupils: Present: PERRL - Neck Neck exam general surgery: Present: supple, trachea midline. Absent: lymphadenopathy - Respiratory Respiratory exam: Present: CTAB. Absent: accessory muscle use, rales, rhonchi, wheezes - Cardiovascular Cardiovascular exam: Present: RRR, +S1, +S2. Absent: diastolic murmur, gallop, rubs, systolic murmur - GI/Abdominal GI/Abdominal exam: Present: normal bowel sounds, soft, no peritoneal signs. Absent: distended, tenderness - Extremities Exam Extremities exam: Present: pedal edema, warm, radial pulses palpable and symmetrical. Absent: calf tenderness, cyanotic Additional comments: Patient with bilateral Unna boots in place - Neurological Exam Neurological exam: Present: CN II-XII intact, oriented X3, no focal deficits. Absent: pronater drift, facial droop, speech deficit - Skin Skin exam: Present: dry, intact Internal Medicine: Result - Labs CBC & Chem 7: 09/19/17 04:55 09/19/17 04:55 - ABG Interpretation ABG results: PT/INR, D-dimer PT 11.6 Seconds (9.4-12.1) 09/19/17 04:55 - VTE Documentation of Mechanical Device: Graduated compression elastic hosiery Consult Discharge Plan - Plan Instructions: Viral Pneumonia (DC) Referrals: Salud Arizmendi MD [Primary Care Provider] - 09/27/17 2:45 pm (follow up appointment)
[2017-09-23 16:43] LABS: Calcium 9.5 mg/dL (8.6-10.3); Potassium 4.1 mEq/L (3.5-5.1)
[2017-09-24] MEDS: *HR* Heparin 5,000 UNIT/ML VIAL SQ SCH (05:31)
[2017-09-24] MEDS: cephALEXin 500 MG CAPSULE PO SCH ×4 (08:34→19:20)
[2017-09-24] MEDS: Acetaminophen 325 MG TABLET PO PRN ×2 (08:34→12:26)
[2017-09-24] MEDS: Aspirin Enteric Coated 81 MG Tablet PO SCH (08:34)
[2017-09-24] MEDS: Furosemide 40 MG TABLET PO SCH ×2 (08:34→17:05)
[2017-09-24] MEDS: *HR* Nateglinide 120 MG TABLET PO SCH ×3 (08:34→17:05)
[2017-09-24] MEDS: Clotrimazole/Betameth Dip CRM 45 APPL/45 GM TUBE TP SCH ×2 (08:35→19:20)
--- NOTE | 2017-09-24 09:42 | Internal Med Progress Note ---
Date of Encounter: 09/24/17 Time of Encounter: 09:40 - Assessment and plan (1) Muscular deconditioning Current Visit: Yes Status: Acute Assessment and plan: improving slowly moving more and strength is getting better (2) Coronary artery disease Current Visit: Yes Status: Chronic Assessment and plan: stable no acute issues no chest pain continue present meds Qualifiers: Coronary Disease-Associated Artery/Lesion type: unspecified vessel or lesion type [place] vs. transplanted heart: [place] heart Associated angina: without angina Qualified Code(s): I25.10 - Atherosclerotic heart disease of [place] coronary artery without angina pectoris (3) Type 2 diabetes mellitus Current Visit: Yes Status: Chronic Assessment and plan: on meds psych np side effects no losw blood sugars s table Qualifiers: Diabetes mellitus intermediate insulin use: without intermediate use Diabetes mellitus complication status: with unspecified complications Qualified Code(s) : E11.8 - Type 2 diabetes mellitus with unspecified complications (4) Essential hypertension Current Visit: Yes Status: Chronic Assessment and plan: stable - Subjective Interval history: No new complains feels well he is ambulatory as tolerated breathing has improved considerable . swelling in feet also improved - Constitutional Vitals: Temp Pulse Resp BP Pulse Ox 99.6 F 82 18 146/73 91 09/24/17 07:05 09/24/17 07:05 09/23/17 19:31 09/24/17 07:05 09/24/17 07:05 General appearance: Present: A&O X 3, pleasant, no acute distress, obese, answers questions appropriately - Head Head exam: Present: atraumatic - Eye Eye exam: Present: EOMI, PERRL - Neck Neck exam general surgery: Present: supple. Absent: nuchal rigidity - Respiratory Respiratory exam: Present: CTAB. Absent: decreased breath sounds, respiratory distress, rhonchi, stridor, wheezes, tachypnea - Cardiovascular Cardiovascular exam: Present: RRR, +S1, systolic murmur. Absent: irregular rhythm, JVD Additional comments: soft systolic mummer no radiation - GI/Abdominal GI/Abdominal exam: Present: normal bowel sounds, soft. Absent: distended, firm , guarding, pulsatile mass, rigid - Extremities Exam Extremities exam: Absent: pedal edema, tenderness Additional comments: edema has improved a lot - Neurological Exam Neurological exam: Present: alert, CN II-XII intact, strengths equal and symetr throughout. Absent: no focal deficits, pronater drift, facial droop, speech deficit Internal Medicine: Result - Labs CBC & Chem 7: 09/19/17 04:55 09/23/17 16:22 Labs: BMP 09/23/17 16:22 Sodium 138 Potassium 4.1 Chloride 98 Carbon Dioxide 33 H BUN 28 H Creatinine 1.46 H Glucose 118 H Calcium 9.5 - ABG Interpretation ABG results: PT/INR, D-dimer PT 11.6 Seconds (9.4-12.1) 09/19/17 04:55 - VTE Documentation of Mechanical Device: Graduated compression elastic hosiery Consult Discharge Plan - Plan Instructions: Viral Pneumonia (DC) Referrals: Salud Arizmendi MD [Primary Care Provider] - 09/27/17 2:45 pm (follow up appointment)
[2017-09-24] MEDS: Ibuprofen 600 MG TABLET PO PRN (17:05)
[2017-09-25] MEDS: Acetaminophen 325 MG TABLET PO PRN ×2 (06:32→12:44)
[2017-09-25] MEDS: Aspirin Enteric Coated 81 MG Tablet PO SCH (08:21)
[2017-09-25] MEDS: *HR* Nateglinide 120 MG TABLET PO SCH ×3 (08:22→17:30)
[2017-09-25] MEDS: Clotrimazole/Betameth Dip CRM 45 APPL/45 GM TUBE TP SCH ×2 (08:22→23:34)
[2017-09-25] MEDS: Furosemide 40 MG TABLET PO SCH ×2 (08:22→17:30)
--- NOTE | 2017-09-25 09:05 | Internal Med Progress Note ---
Date of Encounter: 09/25/17 Time of Encounter: 09:03 - Assessment and plan (1) Muscular deconditioning Current Visit: Yes Status: Acute Assessment and plan: continues to improve. Able to walk more and tolerating his PT well . (2) Coronary artery disease Current Visit: Yes Status: Chronic Assessment and plan: stable no chest pain continue to monitor Qualifiers: Coronary Disease-Associated Artery/Lesion type: unspecified vessel or lesion type [place] vs. transplanted heart: [place] heart Associated angina: without angina Qualified Code(s): I25.10 - Atherosclerotic heart disease of [place] coronary artery without angina pectoris (3) Type 2 diabetes mellitus Current Visit: Yes Status: Chronic Assessment and plan: stable no new change blood sugars are reasonable well controlled for his age and overall condition Qualifiers: Diabetes mellitus longterm insulin use: without longterm use Diabetes mellitus complication status: with unspecified complications Qualified Code(s) : E11.8 - Type 2 diabetes mellitus with unspecified complications (4) Essential hypertension Current Visit: Yes Status: Chronic Assessment and plan: stable . Continue to monitor . Systolic is slightly high no new change . needs to keep a balance between potential side effects and need to have a little better systolic BP control - Subjective Interval history: No new complains feels well he is ambulatory as tolerated breathing has improved considerable . In good spirits and feeling better by the day - Constitutional Vitals: Temp Pulse Resp BP Pulse Ox 99.1 F 72 16 146/60 92 09/25/17 07:00 09/25/17 07:00 09/25/17 07:00 09/25/17 07:00 09/25/17 07:00 General appearance: Present: A&O X 3, pleasant, no acute distress, obese, answers questions appropriately - Head Head exam: Present: atraumatic - Eye Eye exam: Present: EOMI, PERRL Pupils: Present: PERRL - Neck Neck exam general surgery: Present: full ROM, nuchal rigidity, supple. Absent: tenderness - Respiratory Respiratory exam: Present: CTAB. Absent: chest wall tenderness, decreased breath sounds, respiratory distress, rhonchi, stridor, wheezes - Cardiovascular Cardiovascular exam: Present: RRR, +S1, +S2. Absent: irregular rhythm, JVD - GI/Abdominal GI/Abdominal exam: Present: normal bowel sounds, soft. Absent: distended, firm , guarding, rigid - Extremities Exam Extremities exam: Present: pedal edema. Absent: tenderness Additional comments: minimal on his feet - Neurological Exam Neurological exam: Present: alert, CN II-XII intact, oriented X3, no focal deficits, strengths equal and symetr throughout. Absent: facial droop, speech deficit Internal Medicine: Result - Labs CBC & Chem 7: 09/19/17 04:55 09/23/17 16:22 - ABG Interpretation ABG results: PT/INR, D-dimer PT 11.6 Seconds (9.4-12.1) 09/19/17 04:55 - VTE Documentation of Mechanical Device: Graduated compression elastic hosiery Consult Discharge Plan - Plan Instructions: Viral Pneumonia (DC) Referrals: Salud Arizmendi MD [Primary Care Provider] - 09/27/17 2:45 pm (follow up appointment)
[2017-09-25] MEDS: Ibuprofen 600 MG TABLET PO PRN (23:34)
[2017-09-26 05:46] LABS: Basophils % 0.4 %; Eosinophils # 0.2 K/mcL (0.0-0.6); Eosinophils % 2.7 %; Hematocrit 37.9 % (37.5-50.1); Hemoglobin 12.7 g/dL (12.9-16.9); Immature Granulocytes % 0.5 % (0-4); Lymphocytes # 1.9 K/mcL (0.6-4.6); Lymphocytes % 34.9 %; Mean Corpuscular HGB Conc 33.5 g/dL (31.6-35.5); Mean Corpuscular Hemoglobin 32.1 pg (28.0-33.3); Mean Corpuscular Volume 95.7 fL (83.0-100.0); Mean Platelet Volume 10.4 fL (9.4-12.4); Monocytes # 0.8 K/mcL (0.0-1.3); Monocytes % 14.4 %; Neutrophils # 2.6 K/mcL (1.6-8.9); Platelet Count 171 K/mcL (140-400); Red Blood Count 3.96 M/mcL (4.19-5.50); Red Cell Distribution Width 13.4 % (11.5-14.5); Segmented Neutrophils % 47.1 %
[2017-09-26 05:47] LABS: INR 1.1
[2017-09-26 05:53] LABS: Calcium 9.1 mg/dL (8.6-10.3); Potassium 3.9 mEq/L (3.5-5.1)
[2017-09-26 07:39] VITALS: BP 180/90
[2017-09-26] MEDS: *HR* Nateglinide 120 MG TABLET PO SCH ×2 (08:59→12:36)
[2017-09-26] MEDS: Aspirin Enteric Coated 81 MG Tablet PO SCH (08:59)
[2017-09-26] MEDS: Furosemide 40 MG TABLET PO SCH (08:59)
[2017-09-26] MEDS: Clotrimazole/Betameth Dip CRM 45 APPL/45 GM TUBE TP SCH (09:00)
--- NOTE | 2017-09-26 14:06 | Physician Discharge Referral ---
Home Health/Hosp Referral Info Transfer to: Home Health Provider in Charge Post Discharge: PCP - Diagnosis (1) Muscular deconditioning Priority: Primary Status: Acute (2) Coronary artery disease Priority: Secondary Status: Chronic (3) Edema Status: Chronic (4) Essential hypertension Priority: Secondary Status: Acute - Respiratory Orders Smoking Cessation: Smoking cessation has been advised. For more information, call the [place] Tobacco Quit Line at 2-514-WIXC-NOW. - Diet/Nutrition Diet/Nutrition Orders: Regular - Activity Activity Orders: Up ad ruth, Ambulate, Walker - Services Needed Following services are medically necessary services: Nursing, Home Health Aide, Physical Therapy, Occupational Therapy - Transfer Medications Home Medications: Acetaminophen [Tylenol] 650 mg PO Q4HR PRN 09/09/17 [History] Allopurinol [Zyloprim 100 MG] 100 mg PO DAILY 09/09/17 [History] Aspirin [Lo-Dose Aspirin EC] 81 mg PO DAILY 09/09/17 [History] Benzonatate [Tessalon] 200 mg PO Q6H PRN 09/09/17 [History] Clopidogrel [Plavix] 75 mg PO DAILY 09/09/17 [History] Furosemide [Lasix] 40 mg PO BIDWM 09/09/17 [History] Losartan Potassium [Cozaar] 100 mg PO HS 09/09/17 [History] Metoprolol Succinate 50 mg PO BID 09/09/17 [History] Nateglinide [Starlix] 120 mg PO TIDAC 09/09/17 [History] OxyCODONE/APAP 5/325 [Percocet 5/325 MG] 1 each PO Q4HR PRN 09/09/17 [History] Pantoprazole 20 mg PO DAILY 09/09/17 [History] Terazosin HCl 5 mg PO DAILY 09/09/17 [History] amLODIPine [Norvasc] 10 mg PO DAILY 09/09/17 [History] cloNIDine HCl 0.1 mg PO TID 09/09/17 [History] Allergies/Adverse Reactions: 3 Allergy/AdvReac Type Severity Reaction Status Date / Time No Known Allergies Allergy Verified 09/09/17 21:00 Certification: Further, I certify that my clinical findings support that this patient is homebound (i.e. absences from home require considerable and taxing effort and are for medical reasons or [employer] services or infrequently or short duration when for other reasons) because: Homebound Reason: Patient requires assistance of a person or device to safely leave home, Leaving home requires considerable and taxing effort due to condition Attestation: My signature below is to certify that this patient is under my care and that I, or nurse practitioner, or a physician's medical assistant cardiology working with me, has a face-to -face encounter with this patient.
--- NOTE | 2017-09-26 14:22 | Discharge Summary ---
Date of Encounter: 09/26/17 Time of Encounter: 14:15 - Discharge Diagnosis (1) Muscular deconditioning Priority: Primary Status: Acute Comments: improving. continue home health therapy. (2) Coronary artery disease Priority: Secondary Status: Chronic Comments: stable. continue current meds. Qualifiers: Coronary Disease-Associated Artery/Lesion type: unspecified vessel or lesion type [place] vs. transplanted heart: [place] heart Associated angina: without angina Qualified Code(s): I25.10 - Atherosclerotic heart disease of [place] coronary artery without angina pectoris (3) Edema Priority: Secondary Status: Chronic Comments: BLE. f/u with PCP and wound Qualifiers: Edema type: unspecified Qualified Code(s): R60.9 - Edema, unspecified (4) Essential hypertension Priority: Secondary Status: Chronic Comments: controlled with current meds. monitor. BP Hospital course: Mr. Olmedo is a 77 year old male discharging to home after inpatient stay for deconditioning. Patient oxygen saturation remains 92 to 96% with ambulation and hallway. Without oxygen. Patient denies complaints or concerns at this time. Daughter at side Discharge discussed with: patient, family - Time Spent with Patient Total time spent providing and/or coordinating discharge services: Less than 30 minutes - Discharge Medications Home Medications: Acetaminophen [Tylenol] 650 mg PO Q4HR PRN 09/09/17 [History] Allopurinol [Zyloprim 100 MG] 100 mg PO DAILY 09/09/17 [History] Aspirin [Lo-Dose Aspirin EC] 81 mg PO DAILY 09/09/17 [History] Benzonatate [Tessalon] 200 mg PO Q6H PRN 09/09/17 [History] Clopidogrel [Plavix] 75 mg PO DAILY 09/09/17 [History] Furosemide [Lasix] 40 mg PO BIDWM 09/09/17 [History] Losartan Potassium [Cozaar] 100 mg PO HS 09/09/17 [History] Metoprolol Succinate 50 mg PO BID 09/09/17 [History] Nateglinide [Starlix] 120 mg PO TIDAC 09/09/17 [History] OxyCODONE/APAP 5/325 [Percocet 5/325 MG] 1 each PO Q4HR PRN 09/09/17 [History] Pantoprazole 20 mg PO DAILY 09/09/17 [History] Terazosin HCl 5 mg PO DAILY 09/09/17 [History] amLODIPine [Norvasc] 10 mg PO DAILY 09/09/17 [History] cloNIDine HCl 0.1 mg PO TID 09/09/17 [History] Albuterol Sulfate [Albuterol Inhaler] 2 puff IH [id number] PRN inhaler 09/26/17 [ Rx] Clotrimazole/Betameth Dip CRM [Lotrisone CRM] 1 appl TP BID tube 09/26/17 [Rx] Ibuprofen [Motrin] 600 mg PO TID PRN tablet 09/26/17 [Rx] Ipratropium/Albuterol Neb [Duoneb] 3 ml IH [id number] PRN inhsol 09/26/17 [Rx] Allergies/Adverse Reactions: 3 Allergy/AdvReac Type Severity Reaction Status Date / Time No Known Allergies Allergy Verified 09/09/17 21:00 Date of admission: 09/09/17 19:23 Primary care physician: Salud Arizmendi MD Consults: 09/09/17 21:22 Consult to Occupational Therapy [CONS] Routine Comment: eval / tx Reason for Consult: eval / tx Does patient have active BEDREST order?: No Is patient medically & hemodynamically stable?: Yes Patient assessed for mobility or mobilized this visit?: No Consult to Physical Therapy [CONS] Routine Comment: eval /tx Reason for Consult: eval / tx Does patient have active BEDREST order?: No Is patient medically & hemodynamically stable?: Yes Patient assessed for mobility or mobilized this visit?: No Consult to Recreational Therapy [CONS] Routine Comment: Consult to Grocery Carrier [CONS] Routine Reason for SW Consult: dc planning 09/10/17 18:38 Consult to Wound Care [CONS] Routine Reason for Consult: 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 Call Completed: No Discharging clinician: Travis Palomino Anticipated date of discharge: 09/26/17 - Constitutional Vitals: Temp Pulse Resp BP Pulse Ox 98.0 F 73 16 180/90 93 09/26/17 08:00 09/26/17 08:00 09/26/17 08:00 09/26/17 08:00 09/26/17 08:00 General appearance: Present: A&O X 3, pleasant, no acute distress, obese, answers questions appropriately - Head Head exam: Present: atraumatic, normocephalic - Eye Eye exam: Present: PERRL, conjuntiva pink, sclera anicteric Pupils: Present: PERRL - Neck Neck exam general surgery: Present: supple, trachea midline. Absent: lymphadenopathy - Respiratory Respiratory exam: Present: CTAB. Absent: accessory muscle use, rales, rhonchi, wheezes - Cardiovascular Cardiovascular exam: Present: RRR, +S1, +S2. Absent: diastolic murmur, gallop, rubs, systolic murmur - GI/Abdominal GI/Abdominal exam: Present: normal bowel sounds, soft, no peritoneal signs. Absent: distended, tenderness - Extremities Exam Extremities exam: Present: warm, radial pulses palpable and symmetrical. Absent : calf tenderness, cyanotic, pedal edema - Neurological Exam Neurological exam: Present: CN II-XII intact, oriented X3, no focal deficits. Absent: pronater drift, facial droop, speech deficit - Skin Skin exam: Present: dry, intact - Patient Status Disposition: Home Health Service Condition: Good Functional capacity at discharge: uses cane/walker Overall status at discharge: patient is progressing back to baseline - Discharge Instructions Instructions: Viral Pneumonia (DC) Follow Up With: Salud Arizmendi MD [Primary Care Provider] - 09/28/17 3:00 pm (follow up appointment) - VTE Documentation of Mechanical Device: Graduated compression elastic hosiery
== END 2017-09-26 15:30 | disposition home health service (06) | DRG 556 ==
LOC: INPGRE 19:23